=== PATIENT | female | born 1950 | race Caucasian/White ===

== ENCOUNTER → 2016-05-29 | Outpatient (CLI) | payer OTHER ==
[~2016-05-29] MED LIST: ACET1TAB12 PO; ALEN35TA3 PO; CALC600T86 PO; CEPH-583 PO; CHOL100017 PO; HYDR200T PO; LUTE1CAP; MULT1CAP47 PO
== END ==
LOC: WC.BC 15:12
DX: Z12.31 Encounter for screening mammogram for malignant neoplasm of breast (principal); Z80.3 Family history of malignant neoplasm of breast
CPT/HCPCS: 77063; G0202